=== PATIENT | male | born 1975 | race Caucasian/White ===

== ENCOUNTER → 2018-12-17 | Outpatient (CLI) | payer OTHER | END | disposition home or self-care (01) | LOC: RAD 16:26 | PROVIDERS: ATTEND Orthopaedic Surgery | DX: S82.201A Unspecified fracture of shaft of right tibia, initial encounter for closed fracture (principal); M25.461 Effusion, right knee; X58.XXXA Exposure to other specified factors, initial encounter; Y93.89 Activity, other specified; Y92.89 Other specified places as the place of occurrence of the external cause; Y99.8 Other external cause status ==

== ENCOUNTER 2018-12-31 16:28 | Outpatient (CLI) | payer OTHER | END 2018-12-31 23:59 | disposition home or self-care (01) | LOC: RAD 16:28 | PROVIDERS: ATTEND Orthopaedic Surgery | DX: S82.134D Nondisplaced fracture of medial condyle of right tibia, subsequent encounter for closed fracture with routine healing (principal); X58.XXXD Exposure to other specified factors, subsequent encounter ==